=== PATIENT | male | born 1980 | race Caucasian/White ===

== ENCOUNTER → 2017-02-21 | Outpatient (REF) | payer OTHER ==
[2017-02-21 12:08] LABS: ADD MORPHOLOGY? YES; BASO % 0.3 % (0.0-1.0); EOS # 0.1 K/mm3 (0.0-0.50); EOS % 1.8 % (0.0-3.0); LARGE UNSTAINED CELL # 0.1 K/mm3 (0.0-0.4); LARGE UNSTAINED CELL % 1.3 % (0.0-4.0); LYMPH # 2.1 K/mm3 (1.5-4.5); LYMPH % 26.8 % (24.0-44.0); MEAN CORPUSCULAR HEMOGLOBIN 31.1 pg (27.0-33.0); MEAN CORPUSCULAR VOLUME 94.3 fl (80.0-96.0); MONO # 0.5 K/mm3 (0.0-0.8); MONO % 6.6 % (0.0-5.0); NEUTROPHILS # 4.8 K/mm3 (1.8-7.7); NEUTROPHILS % 63.1 % (36.0-66.0); PLATELET COUNT, AUTOMATED 148 k/mm3 (150-450); RED CELL DISTRIBUTION WIDTH 12.9 % (11.5-14.5); WHITE BLOOD COUNT 7.5 K/mm3 (4.0-10.0)
[2017-02-21 12:34] LABS: ALBUMIN 3.7 GM/DL (3.2-5.2); ALBUMIN/GLOBULIN RATIO 1.19 (1.00-1.93); ALKALINE PHOSPHATASE 70 U/L (45-117); ALT/SGPT 23 U/L (12-78); ANION GAP 7 MEQ/L (8-16); AST/SGOT 14 U/L (15-37); BILIRUBIN,TOTAL 0.4 MG/DL (0.2-1.0); BLOOD UREA NITROGEN 9 MG/DL (7-18); CALCIUM LEVEL 8.7 MG/DL (8.5-10.1); CARBON DIOXIDE LEVEL 28 MEQ/L (21-32); CHLORIDE LEVEL 103 MEQ/L (98-107); CHOLESTEROL LEVEL 151 MG/DL (<200); CREATININE FOR GFR 1.04 MG/DL (0.70-1.30); GLOMERULAR FILTRATION RATE > 60.0 (>60); GLUCOSE, FASTING 121 MG/DL (70-105); POTASSIUM SERUM 4.1 MEQ/L (3.5-5.1); SODIUM LEVEL 138 MEQ/L (136-145); TOTAL PROTEIN 6.8 GM/DL (6.4-8.2); TRIGLYCERIDES LEVEL 200 MG/DL (<150)
== END ==
LOC: M SFHCPLAZ 08:50
PROVIDERS: ATTEND Physician Assistant
DX: F41.9 Anxiety disorder, unspecified (principal); R63.4 Abnormal weight loss; E78.4 Other hyperlipidemia

== ENCOUNTER → 2018-04-23 | Outpatient (CLI) | payer OTHER | LOC: M RAD 17:26 | DX: N50.811 Right testicular pain (principal) | CPT/HCPCS: 76870 ==

== ENCOUNTER 2018-05-10 00:45 | Emergency (ER) | payer OTHER | END 2018-05-10 02:25 | disposition home or self-care (01) | LOC: M ED 00:45 | DX: R50.9 Fever, unspecified (principal); R21 Rash and other nonspecific skin eruption; R51 Headache; B34.9 Viral infection, unspecified; F41.9 Anxiety disorder, unspecified; Z79.899 Other long term (current) drug therapy; F17.210 Nicotine dependence, cigarettes, uncomplicated | CPT/HCPCS: 71046 ==

== ENCOUNTER 2018-11-29 06:12 | Emergency (ER) | payer OTHER ==
[~2018-11-29] VITALS: Ht 175.3 cm; Wt 69.5 kg
[2018-11-29 06:12] VITALS: BP 135/96
[~2018-11-29 06:12] MED LIST: ALPR0.25; BUPR1TAB53; ESCI20TA; IBUP-1022 PO; TYLE325T5 PO
[2018-11-29] MEDS ORDERED: DULO1CAP3 (06:19)
[2018-11-29] MEDS ORDERED: NAPR-885 (06:19)
[2018-11-29] MEDS ORDERED: FLUORESCEIN OPHTH 1 MG STRIP OD ONE (06:30)
[2018-11-29] MEDS ORDERED: TETRACAINE 0.5% OPHTH SOLN 4ML OD ONE (06:45)
[2018-11-29] MEDS ORDERED: OFLO3OPSO OD (06:49)
== END 2018-11-29 07:11 | disposition home or self-care (01) ==
LOC: M ED 06:12
DX: S05.01XA Injury of conjunctiva and corneal abrasion without foreign body, right eye, initial encounter (principal); X58.XXXA Exposure to other specified factors, initial encounter; Y92.099 Unspecified place in other non-institutional residence as the place of occurrence of the external cause; Y93.9 Activity, unspecified; Y99.9 Unspecified external cause status; F41.9 Anxiety disorder, unspecified; Z72.0 Tobacco use; Z79.899 Other long term (current) drug therapy

== ENCOUNTER → 2020-02-04 | Outpatient (REF) | payer OTHER ==
[~2020-02-04] MED LIST changes: +DULO1CAP6; +NAPR-885; +OFLO3OPSO OD
[2020-02-04 12:12] LABS: BASO % 0.5 % (0.0-1.0); EOS # 0.2 10^3/uL (0.0-0.5); EOS % 2.4 % (0.0-3.0); HEMATOCRIT 49.4 % (42.0-52.0); HEMOGLOBIN 16.1 g/dl (13.5-17.5); LYMPH % 29.5 % (24.0-44.0); MEAN CORPUSCULAR HEMOGLOBIN 31.8 pg (27.0-33.0); MEAN CORPUSCULAR HGB CONC 32.6 g/dl (32.0-36.5); MEAN CORPUSCULAR VOLUME 97.6 fl (80.0-96.0); MONO # 0.6 10^3/uL (0.0-0.8); MONO % 9.6 % (0.0-5.0); NEUTROPHILS # 3.8 10^3/uL (1.5-8.5); NEUTROPHILS % 57.5 % (36.0-66.0); PLATELET COUNT, AUTOMATED 145 10^3/uL (150-450); RED BLOOD COUNT 5.06 10^6/uL (4.30-6.10); WHITE BLOOD COUNT 6.6 10^3/uL (4.0-10.0)
[2020-02-04 12:26] LABS: ALBUMIN 3.9 GM/DL (3.2-5.2); ALT/SGPT 50 U/L (12-78); BILIRUBIN,TOTAL 0.3 MG/DL (0.2-1.0); BLOOD UREA NITROGEN 11 MG/DL (7-18); CALCIUM LEVEL 9.3 MG/DL (8.5-10.1); CARBON DIOXIDE LEVEL 31 MEQ/L (21-32); CHLORIDE LEVEL 104 MEQ/L (98-107); CHOLESTEROL LEVEL 166 MG/DL (<200); CHOLESTEROL RISK RATIO 4.256 (<5); CREATININE FOR GFR 0.98 MG/DL (0.70-1.30); GLOMERULAR FILTRATION RATE > 60.0 (>60); GLUCOSE, FASTING 125 MG/DL (70-100); HDL CHOLESTEROL 39 MG/DL (>40); NON-HDL-C 127 MG/DL; POTASSIUM SERUM 4.1 MEQ/L (3.5-5.1); SODIUM LEVEL 139 MEQ/L (136-145); TOTAL PROTEIN 7.1 GM/DL (6.4-8.2); TRIGLYCERIDES LEVEL 425 MG/DL (<150)
[2020-02-06 17:07] LABS: E001-IgE Cat Epith/Dander < 0.10 kU/L (Class 0); E005-IgE Dog Dander < 0.10 kU/L (Class 0); G002-IgE Bermuda Grass < 0.10 kU/L (Class 0); G008-IgE Kentucky Bluegrass < 0.10 kU/L (Class 0); M001-IgE Penicillium chrysogen < 0.10 kU/L (Class 0); M002 IgE Cladosporium herbaru < 0.10 kU/L (Class 0); M003 IgE Aspergillus fumigatu < 0.10 kU/L (Class 0); M006-IgE Alternaria alternata < 0.10 kU/L (Class 0); T001-IgE Maple/Box Elder < 0.10 kU/L (Class 0); T003-IgE Common Silver Birch < 0.10 kU/L (Class 0); T006-IgE Cedar, Mountain < 0.10 kU/L (Class 0); T007-IgE Oak, White < 0.10 kU/L (Class 0); T008-IgE Elm, American < 0.10 kU/L (Class 0); T015-IgE Ash, White < 0.10 kU/L (Class 0); T041-IgE Hickory, White < 0.10 kU/L (Class 0); T070-IgE White Mulberry < 0.10 kU/L (Class 0); W001-IgE Ragweed, Short < 0.10 kU/L (Class 0); W009-IgE Plantain, English < 0.10 kU/L (Class 0); W014-IgE Pigweed, Rough < 0.10 kU/L (Class 0); W018-IgE Sheep Sorrel < 0.10 kU/L (Class 0)
[2020-02-08 12:36] LABS: GAMMA GLOBULINS 0.82 GM/DL (0.65-1.58)
[2020-02-08 12:39] LABS: ALBUMIN 4.49 GM/DL (3.29-5.55); ALBUMIN % 63.3 % (55.8-66.1); ALPHA-1-GLOBULIN % 3.9 % (2.9-4.9); ALPHA-1-GLOBULINS 0.28 GM/DL (0.17-0.41)
[2020-02-08 12:40] LABS: ALPHA-2-GLOBULINS 0.71 GM/DL (0.42-0.99); BETA-1-GLOBULINS 0.43 GM/DL (0.28-0.60)
[2020-02-08 12:41] LABS: BETA-2-GLOBULINS 0.37 GM/DL (0.19-0.55); BETA-2-GLOBULINS % 5.2 % (3.2-6.5)
[2020-02-08 12:42] LABS: GAMMA GLOBULIN % 11.6 % (11.1-18.8)
== END ==
LOC: M SFHCPLAZ 08:19
PROVIDERS: ATTEND Physician Assistant Medical
DX: J30.9 Allergic rhinitis, unspecified (principal); D69.6 Thrombocytopenia, unspecified; Z12.5 Encounter for screening for malignant neoplasm of prostate; E78.49 Other hyperlipidemia

== ENCOUNTER 2024-07-16 10:33 | Emergency (ER) | payer OTHER ==
[~2024-07-16] VITALS: Ht 175.3 cm; Wt 74.4 kg
[~2024-07-16 10:33] MED LIST changes: -ESCI20TA; +ESCI20TA16; -OFLO3OPSO OD; +OFLO5DRO OD
[2024-07-16 11:25] LABS: BASO % 0.5 % (0.0-1.0); EOS % 0.5 % (0.0-3.0); HEMATOCRIT 48.1 % (42.0-52.0); HEMOGLOBIN 16.1 g/dl (13.5-17.5); LYMPH # 1.6 10^3/uL (1.5-5.0); LYMPH % 20.6 % (24.0-44.0); MEAN CORPUSCULAR HEMOGLOBIN 31.8 pg (27.0-33.0); MEAN CORPUSCULAR HGB CONC 33.5 g/dl (32.0-36.5); MEAN CORPUSCULAR VOLUME 95.1 fl (80.0-96.0); MONO # 0.7 10^3/uL (0.0-0.8); MONO % 8.8 % (2.0-8.0); NEUTROPHILS # 5.3 10^3/uL (1.5-8.5); NEUTROPHILS % 69.1 % (36.0-66.0); PLATELET COUNT, AUTOMATED 159 10^3/uL (150-450); RED BLOOD COUNT 5.06 10^6/uL (4.30-6.10); WHITE BLOOD COUNT 7.6 10^3/uL (4.0-10.0)
[2024-07-16 11:56] LABS: LIPASE 187 U/L (12-53)
[2024-07-16 11:58] LABS: ALBUMIN 3.8 G/DL (3.2-5.2); ALKALINE PHOSPHATASE 61 U/L (40-129); ALT/SGPT 31 U/L (7.0-40); AST/SGOT 27 U/L (<34); BILIRUBIN,DIRECT < 0.1 MG/DL (<0.4); BILIRUBIN,TOTAL 0.3 MG/DL (0.3-1.2); TOTAL PROTEIN 7.1 G/DL (5.7-8.2)
[2024-07-16] MEDS: KETOROLAC 60MG 2ML VIAL IM ONE (14:48)
[2024-07-16 17:16] VITALS: TEMP 98; O2SAT 96
[2024-07-16] MEDS ORDERED: ONDA-282 PO (17:17)
[2024-07-16] MEDS ORDERED: KETO10TAB PO (17:17)
[2024-07-16 17:18] VITALS: BP 162/92
== END 2024-07-16 17:32 | disposition home or self-care (01) ==
LOC: M ED 10:33
DX: K57.90 Diverticulosis of intestine, part unspecified, without perforation or abscess without bleeding (principal); K40.20 Bilateral inguinal hernia, without obstruction or gangrene, not specified as recurrent; R74.8 Abnormal levels of other serum enzymes; N32.89 Other specified disorders of bladder; F17.210 Nicotine dependence, cigarettes, uncomplicated; Z79.2 Long term (current) use of antibiotics; Z79.899 Other long term (current) drug therapy
CPT/HCPCS: 74176; 80047; 80076; 81001; 83690; 85025; 96372; 99284; J1885

== ENCOUNTER → 2024-11-04 | Outpatient (REF) | payer OTHER ==
[~2024-11-04] MED LIST changes: +KETO10TAB PO; +ONDA-282 PO
[2024-11-04 13:55] LABS: BASO % 0.3 % (0.0-1.0); EOS # 0.1 10^3/uL (0.0-0.5); EOS % 1.4 % (0.0-3.0); HEMOGLOBIN 16.1 g/dl (13.5-17.5); LYMPH # 1.8 10^3/uL (1.5-5.0); LYMPH % 31.4 % (24.0-44.0); MEAN CORPUSCULAR HEMOGLOBIN 31.7 pg (27.0-33.0); MEAN CORPUSCULAR HGB CONC 32.9 g/dl (32.0-36.5); MEAN CORPUSCULAR VOLUME 96.5 fl (80.0-96.0); MONO # 0.6 10^3/uL (0.0-0.8); NEUTROPHILS # 3.2 10^3/uL (1.5-8.5); NEUTROPHILS % 55.4 % (36.0-66.0); PLATELET COUNT, AUTOMATED 159 10^3/uL (150-450); RED BLOOD COUNT 5.08 10^6/uL (4.30-6.10); WHITE BLOOD COUNT 5.7 10^3/uL (4.0-10.0)
[2024-11-04 14:03] LABS: THYROID STIMULATING HORMONE 1.561 uIU/ML (0.55-4.78)
[2024-11-04 14:04] LABS: ALBUMIN 3.7 G/DL (3.2-5.2); ALKALINE PHOSPHATASE 62 U/L (40-129); ALT/SGPT 62 U/L (7.0-40); AST/SGOT 45 U/L (<34); BILIRUBIN,TOTAL 0.3 MG/DL (0.3-1.2); BLOOD UREA NITROGEN 8 MG/DL (9-23); CALCIUM LEVEL 9.1 MG/DL (8.5-10.1); CARBON DIOXIDE LEVEL 28 MMOL/L (20-31); CHLORIDE LEVEL 104 MMOL/L (98-107); CHOLESTEROL LEVEL 145 MG/DL (<200); CHOLESTEROL RISK RATIO 3.88 (<5); GLOMERULAR FILTRATION RATE > 60.0 (>60); GLUCOSE, FASTING 159 MG/DL (60-100); HDL CHOLESTEROL 37.3 MG/DL (>40); LDL CHOLESTEROL 52.5 MG/DL (<100); NON-HDL-C 107.7 MG/DL; POTASSIUM SERUM 4.9 MMOL/L (3.5-5.1); SODIUM LEVEL 140 MMOL/L (136-145); TOTAL PROTEIN 7.1 G/DL (5.7-8.2); TRIGLYCERIDES LEVEL 276 MG/DL (<150)
== END ==
LOC: M LAB REF 13:03
PROVIDERS: ATTEND Student in an Organized Health Care Education/Training Program
DX: Z00.01 Encounter for general adult medical examination with abnormal findings (principal)

== ENCOUNTER 2024-11-19 06:52 | Day surgery (SDC) | payer OTHER ==
[~2024-11-19] VITALS: Ht 175.3 cm; Wt 75.5 kg
[2024-11-19] MEDS ORDERED: LIDOCAINE 2% 100MG/5ML SDV (FOR ANES.) As Ordered ONE (07:48)
[2024-11-19] MEDS ORDERED: propofoL 200 MG/20 ML VIAL As Ordered ONE (07:48)
[2024-11-19 08:14] VITALS: TEMP 98.4
[2024-11-19 08:35] VITALS: BP 152/93; O2SAT 99
== END 2024-11-19 08:36 | disposition home or self-care (01) ==
LOC: M OPP 06:52
PROVIDERS: ATTEND Surgery
DX: Z12.11 Encounter for screening for malignant neoplasm of colon (principal); D12.6 Benign neoplasm of colon, unspecified; K57.30 Diverticulosis of large intestine without perforation or abscess without bleeding; Z80.0 Family history of malignant neoplasm of digestive organs; F17.210 Nicotine dependence, cigarettes, uncomplicated

== ENCOUNTER 2024-12-15 07:53 | Day surgery (SDC) | payer OTHER ==
[~2024-12-15] VITALS: Ht 175.3 cm; Wt 75.9 kg
[~2024-12-15 07:53] MED LIST changes: +AZEL1SPR3; +FLUTISP; +LOSA25TA13 PO
[2024-12-15] MEDS ORDERED: MIDAZOLAM INJ 2MG/2ML VIAL As Ordered ONE (08:27)
[2024-12-15] MEDS ORDERED: LIDOCAINE 2% 100MG/5ML SDV (FOR ANES.) As Ordered ONE (08:27)
[2024-12-15] MEDS ORDERED: ROCURONIUM BROMIDE 50MG/5ML VIAL As Ordered ONE (08:27)
[2024-12-15] MEDS ORDERED: KETOROLAC 30 MG/ML 1ML VIAL As Ordered ONE (08:27)
[2024-12-15] MEDS ORDERED: ONDANSETRON 4MG 2ML VIAL As Ordered ONE (08:27)
[2024-12-15] MEDS ORDERED: fentaNYL 100 MCG/2 ML INJECTION As Ordered ONE (08:27)
[2024-12-15] MEDS ORDERED: propofoL 200 MG/20 ML VIAL As Ordered ONE (08:27)
[2024-12-15] MEDS ORDERED: SUGAMMADEX SODIUM 500 MG/5 ML VIAL (BRIDION) As Ordered ONE (08:30)
[2024-12-15] MEDS: LR 1,000 ML IV SCH (08:49)
[2024-12-15] MEDS: ceFAZolin SOD 2 GM IV ONCE IV ONE (09:38)
[2024-12-15] MEDS ORDERED: ACETAMINOPHEN 1000MG/100ML IV BAG As Ordered ONE (09:58)
[2024-12-15] MEDS ORDERED: ONDANSETRON 4MG 2ML VIAL IV PRN (11:20)
[2024-12-15] MEDS ORDERED: fentaNYL 100 MCG/2 ML INJECTION IV PRN (11:20)
[2024-12-15] MEDS ORDERED: LR 1,000 ML IV SCH (11:20)
[2024-12-15] MEDS: oxyCODONE 5MG TAB PO PRN (12:05)
[2024-12-15] MEDS: HYDROMORPHONE HCL 0.5 MG/ 0.5 ML SYRINGE IV PRN (12:05)
[2024-12-15 12:33] VITALS: BP 148/98; TEMP 98; O2SAT 96
== END 2024-12-15 13:21 | disposition home or self-care (01) ==
LOC: M SDC 07:53
PROVIDERS: ATTEND Surgery
DX: K40.90 Unilateral inguinal hernia, without obstruction or gangrene, not specified as recurrent (principal); R06.83 Snoring; Z79.899 Other long term (current) drug therapy; F17.210 Nicotine dependence, cigarettes, uncomplicated
CPT/HCPCS: 49650; C1781; J0131; J0665; J0690; J1100; J1171; J1885; J2250; J2405; J3010; S2900

== ENCOUNTER → 2025-05-21 | Outpatient (REF) | payer OTHER ==
[~2025-05-21] MED LIST changes: +BUPR150T15; -BUPR1TAB53; -IBUP-1022 PO; +IBUP600T42 PO
== END ==
LOC: M SFHCDERM 15:58
PROVIDERS: ATTEND Nurse Practitioner Family
DX: D49.2 Neoplasm of unspecified behavior of bone, soft tissue, and skin (principal)